=== PATIENT | female | born 1960 | race Caucasian/White ===

== ENCOUNTER 2017-04-27 15:06 | Emergency (ER) | payer OTHER, MEDICARE ==
[~2017-04-27] VITALS: Ht 175.3 cm; Wt 91.6 kg
[~2017-04-27 15:06] MED LIST: ADULT LOW DOSE81 MG PO; ALBUTEROL200 PUFFS/ IH; ATIVAN0.5 MG PO; BROMFED DM COU118 ML PO; CALTRATE 600 +1 TA1 PO; CLOPIDOGREL75 MG PO; COZAAR25 M1 PO; CYMBALTA30 MG PO; CYMBALTA60 MG PO; FLAGYL 250MG.250 MG PO; IMDUR 30MG. TAB30 MG PO; LASIX 20MG. TAB20 MG PO; LEVAQUIN 750 M750 MG PO; LEVAQUIN500 MG PO; LEVOTHYROXIN0.112 M1 PO; LEXAPRO 10 MG T10 MG PO; LINZESS290 MCG PO; MEDROL 4MG. DOSE4 MG PO; METRONIDAZOLE500 M2 PO; NORCO 325 MG-51 TAB PO; OLEPTRO150 MG PO; PRAVASTATIN SOD40 MG PO; PRILOSEC OTC20 MG PO; PRILOSEC20 M1 PO; SYNTHROID0.025 MG PO; TOPROL XL 100M100 MG PO; TOPROL XL 50MG50 MG PO; TRAZODONE150 MG PO; WELLBUTRIN 100100 M1 PO; ZITHROMAX Z PA250 MG PO; ZOCOR80 MG PO
--- OUTSIDE RECORDS SUMMARY | 2017-04-27 15:11 | External Medical Summary Rpt | CCD ---
Author Author [employer] Organization [employer] Address Unknown Phone Unavailable Purpose Continuity of Care Document - through 2016
--- OUTSIDE RECORDS SUMMARY | 2017-04-27 15:11 | External Medical Summary Rpt | CCD ---
Demographics Preferred Language Greenlandic Marital Status Unknown Shinto Affiliation Unknown Race Unknown Ethnic Group Unknown Author Author , KAYE RESTREPO Address Unknown Phone Immunization No patient found.
--- OUTSIDE RECORDS SUMMARY | 2017-04-27 15:11 | External Medical Summary Rpt | CCD ---
Author Author KAYE Address Unknown Phone Purpose Continuity of Care Document - through 2016
--- OUTSIDE RECORDS SUMMARY | 2017-04-27 15:11 | External Medical Summary Rpt | CCD ---
Demographics Preferred Language Khmer Marital Status Unknown Catholic Affiliation Unknown Race Unknown Ethnic Group Unknown Author Author , KAYE RESTREPO Address Unknown Phone Immunization No patient found.
--- OUTSIDE RECORDS SUMMARY | 2017-04-27 15:11 | External Medical Summary Rpt ---
Author Author KAYE Diaz, [employer] Organization [employer] Address Unknown Phone Unavailable
--- NOTE | 2017-04-27 15:26 | Urgent Treatment Center Report ---
History of Present Issue Date/Time Seen by Provider 04/27/17 1526 Visit Reason Pt arrived:Walked Presenting Problem:PT C/O SORE THROAT AMD LOOSING HER VOICE SINCE YESTERDAY Location if Accident: Onset of symptoms date/time:/ or onset unknown for:MEDICAL HX UNKNOWN Have you (or family members/close friends) recently traveled outside the [place]? N If Yes, where/when: Have you had exposure to infectious disease within the past month? TB? Other? Specify: Source patient, RN notes reviewed Exam Limitations no limitations Comment Ears popping, sinus drainage, sore throat and hoarseness X 2-3 days. No fever. Minimal cough. No vomiting or diarrhea. ALLERGIES Coded Allergies: Penicillins (Intermediate, I-RASH 06/27/16) Iodinated Contrast- Oral and IV Dye (IODINATED CONTRAST MEDIA - IV DYE) () Home Medications Active Scripts D-METHORPHAN HB/P-EPD HCL/BPM (Bromfed Dm Cough Syrup) 10 ML PO Q4HP PRN cough #120 SYR Prov: 11/21/16 Methylprednisolone (Medrol Dose Chris) 4 MG PO UD #1 CHRIS Prov: 11/21/16 HYDROCODONE/ACETAMINOPHEN ([place] 5-325 Tablet) 1-2 TAB PO Q4HP PRN pain #27 TAB Prov: 06/28/16 Reported Medications Aspirin (Adult Low Dose Aspirin EC) 81 MG PO DAILY OMEPRAZOLE MAGNESIUM (Prilosec OTC) 20 MG PO DAILY Losartan Potassium (Cozaar) 25 MG PO DAILY CALCIUM CARBONATE/VITAMIN D3 (Caltrate 600 + D Tablet) 1 TAB PO BID Escitalopram Oxalate (Lexapro 10MG) 10 MG PO DAILY #30 TAB Albuterol (Albuterol 90MCG/Puff Inhaler) 1 PUFF IH PRN #1 INH Pravastatin Sodium 80 MG PO QHS ISOSORBIDE MONONITRATE (IMDUR 30MG) 30 MG PO DAILY Furosemide (Lasix 20MG) 20 MG PO DAILY Levothyroxine Sodium (Levothyroxine 0.112MG) 0.112 MG PO DAILY METOPROLOL SUCCINATE (Toprol Xl) 150 MG PO DAILY Linaclotide (Linzess 290MCG) 290 MCG PO DAILY History Medical History General CAD? No Angina: No CA: Yes Hypertension? Yes Hyperlipidemia? Yes CHF? No DVT? No PE? No COPD? No Asthma? Yes Anemia? No GERD? Yes Gastric ulcers? No GI Bleed? No Hernia? No Thyroid Problems? Yes Hypothyroidism? No CVA? No Seizures? No Diabetes? No UTI? No Stones? No GB Disease: No Nephritic Syndrome? No Asplenia? No Hepatitis? No Sickle Cell Disease? No Arthritis? No Migraines? No Cataracts? No Glaucoma? No MRSA? No HIV? No TB? No Anxiety? Yes Depression? Yes Cancer? No More? No Immunization HX DT/Tetanus 08/06/09 Flu 2015- Flu Season Pneumonia 07/17/11 Surgical Hx Previous Surgery?N ORAL SURGERY Tubal Ligation Hysterect [place] OPEN HEART 4 BYPASS Family History Family HX Diabetes No CAD Yes Hypertension Yes Hyperlipidemia Yes Cancer No TB No Social History Smoking Hx Smoker: Never Smoker Tobacco: No Packs/day < 1 Pack Alcohol Alcohol: No Review of Systems All Other Systems Reviewed and Negative ENT ear pain, nose discharge, throat pain. Physical Exam Vital Signs Vital Signs Date Time Temp Pulse Resp B/P Pulse O2 O2 Flow FiO2 Ox Delivery Rate 04/27 1512 98.7 77 16 138/77 98 General Appearance normal appearance, no apparent distress Ear, Nose, Throat hearing grossly normal, abnormal TM (R), abnormal TM (L), nasal congestion, tonsillar swelling Respiratory Status No: respiratory distress, trachea midline, chest symmetrical. Lung Sounds bilateral: normal breath sounds, lungs clear. Cardiovascular normal exam, regular rate/rhythm, no peripheral edema, no gallop, no JVD, no murmur, no rub Extremities non-tender, normal range of motion, normal inspection, normal capillary refill Neurologic alert, normal exam, oriented x 3 Mental status normal mood/affect Medical Decision Making LABS/Meds/Orders Pt receiving controlled substance in ED? No Departure Departure Time of Disposition 1533 Disposition DC Home or Self Care(routine) Clinical Impression Primary Impression: Laryngitis Condition STABLE Referrals Tang Ott MD (Family) Patient Instructions DI for Laryngitis Additional Instructions Fluids - salt water gargles or gatorade slushies; Ibuprofen for pain/swelling/ inflammation Discharge Counseling Counseled pt/family regarding diagnosis, medications/RX, home care, follow up needs Prescriptions Current Visit Scripts Methylprednisolone (Methylpred Dose-Chris) 4 MG PO UD #1 CHRIS TAKE DIRECTED ON PACKAGING Fluticasone Propionate (Flonase 50 Mcg Nasal [place]) 1 SPRAY NA BID #1 BOT at [id number]
[2017-04-27] MEDS ORDERED: METHYLPRED DP4 MG PO (15:34)
[2017-04-27] MEDS ORDERED: FLONASE 50 MCG16 GM (15:34)
[2017-04-27 15:38] VITALS: BP 138/77
[2017-04-28] MEDS ORDERED: MEDROL 4MG. DOSE4 MG (10:18)
== END 2017-04-27 15:39 | disposition home or self-care (01) ==
LOC: UTC 15:06
DX: J04.0 Acute laryngitis (principal); Z88.0 Allergy status to penicillin; Z79.82 Long term (current) use of aspirin; I10 Essential (primary) hypertension; E78.5 Hyperlipidemia, unspecified; J45.909 Unspecified asthma, uncomplicated; F41.8 Other specified anxiety disorders